=== PATIENT | male | born 1955 | race African-American/Black ===

== ENCOUNTER 2025-01-20 19:42 | Emergency (ER) | payer MEDICARE ==
[2025-01-20] MEDS ORDERED: Lidocaine 1% w/Epinephrine 1:200K 30 ML VIAL ONE (20:48)
[2025-01-20] MEDS ORDERED: Lidocaine Viscous Sol 2% 15 ml UD Cup ONE (20:49)
[2025-01-20 20:59] LABS: #Basophils 0.03 10x3/uL (0.0-0.2); #Eosinophils 0.04 10x3/uL (0.0-0.5); #Monocytes 0.78 10x3/uL (0.0-1.1); #Neutrophils 8.82 10x3/uL (1.5-8.4); %Basophils 0.3 % (0.0-2.0); %Eosinophils 0.4 % (0.0-6.0); %Lymphocytes 12.1 % (18.0-47.0); %Monocytes 7.1 % (0.0-10.0); %Neutrophils 79.9 % (40.0-75.0); Hematocrit 40.8 % (38.8-50.0); Hemoglobin 13.7 g/dL (13.5-17.5); Mean Corpuscular Hemoglobin 31.0 pg (27.0-33.0); Mean Corpuscular Volume 92.3 fL (81.2-95.1); Platelet Count 162 10x3/uL (150-450); Red Blood Cell (RBC) Count 4.42 10x6/uL (4.32-5.72); White Blood Cell (WBC) Count 11.02 10x3/uL (3.5-10.5)
[2025-01-20 21:16] LABS: ALT (SGPT) 25 U/L (Less than 45); AST (SGOT) 32 U/L (11-34); Albumin 4.0 g/dL (3.1-4.5); Alkaline Phosphatase 85 U/L (40-110); Anion Gap 13 mmol/L (10-20); BUN (Urea Nitrogen) 20 mg/dL (8.4-25.7); Bilirubin, Total 0.3 mg/dL (0.3-1.2); CK (CPK) 671 U/L (30-200); Calc. Creatinine Clearance 0 mL/min (70-130); Calcium 9.1 mg/dL (7.8-10.44); Carbon Dioxide 28 mmol/L (23-31); Chloride 103 mmol/L (98-107); Globulin 3.3 g/dL (2.4-3.5); Glucose 96 mg/dL (83-110); Magnesium 2.0 mg/dL (1.6-2.6); Potassium 3.9 mmol/L (3.5-5.1); Sodium 140 mmol/L (136-145)
[2025-01-20 21:20] LABS: Troponin I Less than 0.010 ng/mL (< 0.028)
[2025-01-20 21:25] LABS: Glucose, Urine (Dipstick) Normal (Negative); Leukocyte Negative (Negative); Protein, Urine (Dipstick) 15 mg/dl (Neg-Trace); Specific Gravity, Urine 1.015 (1.005-1.030)
[2025-01-20 21:30] LABS: Bacteria/HPF Rare-Few HPF (None Seen); CAUTI Indications for Culture Pelvic or flank pain; RBC/HPF 0-3 HPF (0-3); WBC/HPF 0-3 HPF (0-3)
[2025-01-20 21:32] LABS: Urine Culture Reflex No No
== END 2025-01-20 23:11 | disposition home or self-care (01) ==
LOC: CSHERS 19:42
DX: E86.0 Dehydration (principal); H61.21 Impacted cerumen, right ear; N17.9 Acute kidney failure, unspecified; K21.9 Gastro-esophageal reflux disease without esophagitis; I10 Essential (primary) hypertension; Z79.82 Long term (current) use of aspirin; Z79.899 Other long term (current) drug therapy
CPT/HCPCS: 71045; 80053; 81001; 82550; 83735; 84484; 85025; 93005; 96360; 96361